=== PATIENT | male | born 1975 | race Caucasian/White ===

== ENCOUNTER 2017-06-16 16:43 | Emergency (ER) | payer OTHER ==
[2017-06-16 16:51] VITALS: BP 158/93
[2017-06-16] MEDS ORDERED: Sulfamethoxazole/Trimethoprim 800-160 MG Tab PO ONE (17:18)
--- NOTE | 2017-06-16 17:44 | EDM.PDOC ---
Scribed by Jessica Schmidt 06/16/17 1722 for Hamida Estrada NP ED HPI GENERAL MEDICAL PROBLEM - General Chief Complaint: Skin Complaint Stated Complaint: SORE ON BACK OF NECK AND STIFF NECK, [id number] Time Seen by Provider: 06/16/17 16:58 Source of Information: Reports: Patient, RN, RN Notes Reviewed History Limitations: Reports: No Limitations - History of Present Illness INITIAL COMMENTS - FREE TEXT/NARRATIVE: Patient presents to ER with complaint of a sore on the back of head which he noticed a few days ago. No drainage. He felt lump growing each day. He is very concerned about if being melanoma or too near the spinal cord. Location: Reports: Head Quality: Reports: Ache Severity: Mild Improves with: Reports: None Worsens with: Reports: None Associated Symptoms: Reports: No Other Symptoms Right Neck Pain Score (Numeric/FACES): 1 - Related Data Allergies Allergy/AdvReac Type Severity Reaction Status Date / Time No Known Allergies Allergy Verified 06/16/17 16:54 Home Meds: Home Meds Albuterol [Proventil HFA] 1 puff INH Q6H PRN 01/19/16 [History] Loratadine [Claritin] 10 mg PO DAILY 01/19/16 [History] Past Medical History HEENT History: Reports: Impaired Vision Respiratory History: Reports: Asthma Musculoskeletal History: Reports: Fracture - Infectious Disease History Infectious Disease History: Reports: Chicken Pox Social & Family History - Family History Family Medical History: Noncontributory - Tobacco Use Smoking Status *Q: Never Smoker - Caffeine Use Caffeine Use: Reports: Coffee - Recreational Drug Use Recreational Drug Use: No ED ROS GENERAL - Review of Systems Review Of Systems: ROS reveals no pertinent complaints other than HPI. ED EXAM, SKIN/RASH Exam: See Below Exam Limited By: No Limitations General Appearance: Alert, WD/WN, No Apparent Distress Eye Exam: Bilateral Eye: Normal Inspection Ears: Normal External Exam, Normal Canal, Hearing Grossly Normal, Normal TMs Nose: Normal Inspection, Normal Mucosa, No Blood Throat/Mouth: Normal Inspection, Normal Lips, Normal Teeth, Normal Gums, Normal Oropharynx, Normal Voice, No Airway Compromise Head: Atraumatic, Normocephalic Neck: Normal Inspection, Supple, Non-Tender, Full Range of Motion Respiratory/Chest: No Respiratory Distress, Lungs Clear, Normal Breath Sounds, No Accessory Muscle Use, Chest Non-Tender Cardiovascular: Normal Peripheral Pulses, Regular Rate, Rhythm, No Edema, No Gallop, No JVD, No Murmur, No Rub GI/Abdominal: Normal Bowel Sounds, Soft, Non-Tender, No Organomegaly, No Distention, No Abnormal Bruit, No Mass (Male) Exam: Deferred Rectal (Males) Exam: Deferred Back Exam: Normal Inspection Extremities: Normal Inspection, Normal Range of Motion, Non-Tender, No Pedal Edema, Normal Capillary Refill Neurological: Alert, Oriented, CN II-XII Intact, Normal Cognition, Normal Gait, Normal Reflexes, No Motor/Sensory Deficits Psychiatric: Normal Affect, Normal Mood Skin: Other (5mm wound. Dry green yellow on crusted drainage.) Lymphatic: No Adenopathy Course - Vital Signs Last Recorded V/S: Last Vital Signs Temp 97.1 F 06/16/17 16:50 Pulse 93 06/16/17 16:50 Resp 16 06/16/17 16:50 BP 158/93 H 06/16/17 16:50 Pulse Ox 98 06/16/17 16:50 - Orders/Labs/Meds Meds: Medications Discontinued Medications Generic Name Dose Route Start Last Admin Trade Name Freq PRN Reason Stop Dose Admin Trimethoprim/Sulfamethoxazole 1 tab 06/16/17 17:18 06/16/17 17:21 Septra Ds PO 06/16/17 17:19 1 tab ONETIME ONE Administration Departure - Departure Time of Disposition: 17:19 Disposition: Home, Self-Care 01 Condition: Good Clinical Impression: Abscess - Discharge Information Instructions: Abscess, [id number] Forms: ED Department Discharge Additional Instructions: Follow up with your primary care facility next week RX: Bactrim Keep area clean and dry I have read and agree with the documentation that has been completed regarding this visit. By signing this record, I attest that the documentation was completed in my physical presence and is an accurate record of the encounter.
== END 2017-06-16 17:25 | disposition home or self-care (01) ==
LOC: DL.ED 16:43
DX: L02.11 Cutaneous abscess of neck (principal); Z79.899 Other long term (current) drug therapy
CPT/HCPCS: 87070; 99283; A9270; 87077; 87186

== ENCOUNTER 2017-06-18 22:34 | Emergency (ER) | payer OTHER ==
[2017-06-18] MEDS ORDERED: Iopamidol 612 MG/ML 75 ML Bottle IVPUSH ONE (22:55)
[2017-06-18 23:16] VITALS: BP 135/72
[2017-06-18 23:24] LABS: ANION GAP 12.8; CHLORIDE,CL 100 mmol/L (101-111); SODIUM,NA 136 mmol/L (135-145)
--- NOTE | 2017-06-19 00:32 | EDM.PDOC ---
ED HPI GENERAL MEDICAL PROBLEM - General Chief Complaint: Skin Complaint Stated Complaint: PAIN IN NECK? [id number] Time Seen by Provider: 06/18/17 22:48 Source of Information: Reports: Patient History Limitations: Reports: No Limitations - History of Present Illness INITIAL COMMENTS - FREE TEXT/NARRATIVE: This 41 yo male patient reports to the ED with swelling at the base of his scalp , history of an abscess and tingling of his left leg. The patient was seen in the ED 2 days ago with an abscess to the posterior head and neck. The patient was started on Bactrim, but noticed increased symptoms today. Onset: Today Duration: Constant, Getting Worse Location: Reports: Head, Neck Quality: Reports: Ache, Dull Severity: Moderate Improves with: Reports: None Worsens with: Reports: None Associated Symptoms: Reports: No Other Symptoms - Related Data Allergies Allergy/AdvReac Type Severity Reaction Status Date / Time No Known Allergies Allergy Verified 06/18/17 22:50 Home Meds: Home Meds Albuterol [Proventil HFA] 1 puff INH Q6H PRN 01/19/16 [History] Loratadine [Claritin] 10 mg PO DAILY 01/19/16 [History] Past Medical History HEENT History: Reports: Impaired Vision Respiratory History: Reports: Asthma Musculoskeletal History: Reports: Fracture - Infectious Disease History Infectious Disease History: Reports: Chicken Pox Social & Family History - Family History Family Medical History: Noncontributory - Tobacco Use Smoking Status *Q: Never Smoker - Caffeine Use Caffeine Use: Reports: Coffee - Recreational Drug Use Recreational Drug Use: No ED ROS GENERAL - Review of Systems Review Of Systems: ROS reveals no pertinent complaints other than HPI. ED EXAM, SKIN/RASH Exam: See Below Exam Limited By: No Limitations General Appearance: Alert, WD/WN, Mild Distress Eye Exam: Bilateral Eye: EOMI, Normal Inspection, PERRL Ears: Normal External Exam, Normal Canal, Hearing Grossly Normal, Normal TMs Nose: Normal Inspection, Normal Mucosa, No Blood Throat/Mouth: Normal Inspection, Normal Lips, Normal Teeth, Normal Gums, Normal Oropharynx, Normal Voice, No Airway Compromise Head: Other (posterior scalp localized reaction to abscess) Neck: Other (localized tissue reaction to abscess with no drainage) Cardiovascular: Normal Peripheral Pulses, Regular Rate, Rhythm, No Edema, No Gallop, No JVD, No Murmur, No Rub GI/Abdominal: Normal Bowel Sounds, Soft, Non-Tender, No Organomegaly, No Distention, No Abnormal Bruit, No Mass (Male) Exam: Deferred Rectal (Males) Exam: Deferred Back Exam: Normal Inspection, Full Range of Motion, NT Extremities: Normal Inspection, Normal Range of Motion, Non-Tender, No Pedal Edema, Normal Capillary Refill Neurological: Alert, Oriented, CN II-XII Intact, Normal Cognition, Normal Gait, Normal Reflexes, No Motor/Sensory Deficits Psychiatric: Normal Affect, Normal Mood Skin: Other Location, Skin: Neck Characteristics: Other Associated features: Swelling. No: Warmth, Tenderness, Induration Lymphatic: No Adenopathy Course - Vital Signs Last Recorded V/S: Last Vital Signs Temp 36.2 C 06/18/17 23:15 Pulse 80 06/18/17 23:15 Resp 16 06/18/17 23:15 BP 135/72 06/18/17 23:15 Pulse Ox 99 06/18/17 23:15 - Orders/Labs/Meds Labs: Laboratory Tests 06/18/17 06/18/17 06/18/17 Range/Units 23:00 23:00 23:00 WBC 6.8 (5.0-10.0) 10^3/uL RBC 5.48 (4.6-6.2) 10^6/uL Hgb 16.1 (14.0-18.0) g/dL Hct 46.1 (40.0-54.0) % MCV 84.1 (80-100) fL MCH 29.4 (27.0-34.0) pg MCHC 34.9 (33.0-35.0) g/dL Plt Count 196 (150-450) 10^3/uL Neut % (Auto) 50.5 (42.2-75.2) % Lymph % (Auto) 35.3 (20.5-50.1) % [place] % (Auto) 9.3 H (2-8) % Eos % (Auto) 4.6 H (1.0-3.0) % Baso % (Auto) 0.3 (0.0-1.0) % Sodium 136 (135-145) mmol/L Potassium 3.8 (3.6-5.0) mmol/L Chloride 100 L (101-111) mmol/L Carbon Dioxide 27.0 (21.0-31.0) mmol/L Anion Gap 12.8 BUN 17 (7-18) mg/dL Creatinine 1.3 (0.6-1.3) mg/dL Est Cr Clr Drug Dosing 85.19 mL/min Estimated GFR (MDRD) > 60 BUN/Creatinine Ratio 13.07 Glucose 100 (74-105) mg/dL Lactic Acid 1.1 (0.5-2.2) mmol/L Calcium 9.2 (8.4-10.2) mg/dl Total Bilirubin 0.7 (0.2-1.0) mg/dL AST 29 (10-42) IU/L ALT 55 (10-60) IU/L Alkaline Phosphatase 68 (42-121) IU/L Total Protein 7.6 (6.7-8.2) g/dl Albumin 4.4 (3.2-5.5) g/dl Globulin 3.2 Albumin/Globulin Ratio 1.38 Meds: Medications Discontinued Medications Generic Name Dose Route Start Last Admin Trade Name Freq PRN Reason Stop Dose Admin Iopamidol 75 ml 06/18/17 22:55 Isovue-300 (61%) IVPUSH 06/18/17 22:56 ONETIME ONE Departure - Departure Time of Disposition: 00:32 Disposition: Home, Self-Care 01 Condition: Fair Clinical Impression: Abscess of neck - Discharge Information Instructions: Abscess, [id number] Forms: ED Department Discharge Care Plan Goals: The patient was advised of the examination, lab and CT results during the visit. The patient was encouraged to continue to take the Bactrim as prescribed. If the patient has any additional symptoms or further concerns, the patient should follow-up with his primary care facility or return to the emergency department.
== END 2017-06-19 00:43 | disposition home or self-care (01) ==
LOC: DL.ED 22:34
DX: L02.11 Cutaneous abscess of neck (principal); L02.811 Cutaneous abscess of head [any part, except face]; J45.909 Unspecified asthma, uncomplicated; Z79.899 Other long term (current) drug therapy
CPT/HCPCS: 36415; 70450; 70491; 80053; 83605; 85025; 99283; Q9967

== ENCOUNTER 2019-07-20 13:57 | Emergency (ER) | payer OTHER ==
[2019-07-20] MEDS ORDERED: Albuterol/Ipratropium 3.0-0.5 MG/3 ML Neb Soln NEB ONE (14:05)
[2019-07-20 14:15] VITALS: BP 132/84; PULSE 102
[2019-07-20] MEDS ORDERED: Sodium Chloride 0.9% 10 ML Syringe FLUSH PRN (14:17)
[2019-07-20] MEDS ORDERED: methylPREDNISolone Sodium Succinate 125 MG/2 ML SDV IVPUSH ONE (14:17)
[2019-07-20] MEDS ORDERED: Magnesium Sulfate/Water 100 ML IV ONE (14:18)
--- NOTE | 2019-07-20 14:54 | EDM.PDOC ---
Scribed by Jessica Schmidt 07/20/19 8410 for Sumanth Quach MD ED HPI GENERAL MEDICAL PROBLEM - General Chief Complaint: Respiratory Problem Stated Complaint: RESPIRATORY Time Seen by Provider: 07/20/19 14:07 Source of Information: Reports: Patient, RN, RN Notes Reviewed History Limitations: Reports: No Limitations - History of Present Illness INITIAL COMMENTS - FREE TEXT/NARRATIVE: Patient presents to ER by POV with 3 day history of cough and increasing need for inhaler, up to every two hours now. 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 States this is usually just seasonal. Unsure if he has had temp, but has felt chills. He states his wheezing became so severe last evening that he began using his Albuterol inhaler every 1 to 2 hours and came close to having a panic attack due to shortness of breath. He has a nebulizer at home but no tubing at home. His last asthma flare up was during harvest. He states that grain dust is usually his trigger but he has not been exposed to any grain dust recently and does not know what triggered this current episode. Onset Date: 07/18/19 Duration: Getting Worse Location: Reports: Chest Severity: Moderate Improves with: Reports: None Worsens with: Reports: None Associated Symptoms: Reports: No Other Symptoms - Related Data Allergies Allergy/AdvReac Type Severity Reaction Status Date / Time No Known Allergies Allergy Verified 06/18/17 22:50 Home Meds: Home Meds Albuterol [Proventil HFA] 1 puff INH Q6H PRN 01/19/16 [History] Loratadine [Claritin] 10 mg PO DAILY 01/19/16 [History] Past Medical History HEENT History: Reports: Impaired Vision Respiratory History: Reports: Asthma Musculoskeletal History: Reports: Fracture - Infectious Disease History Infectious Disease History: Reports: Chicken Pox Social & Family History - Family History Family Medical History: Noncontributory - Tobacco Use Smoking Status *Q: Never Smoker - Caffeine Use Caffeine Use: Reports: Coffee ED ROS GENERAL - Review of Systems Review Of Systems: Comprehensive ROS is negative, except as noted in HPI. ED EXAM, GENERAL - Physical Exam Exam: See Below Exam Limited By: No Limitations General Appearance: Alert, WD/WN, No Apparent Distress, Anxious Eye Exam: Bilateral Eye: Normal Inspection Nose: Normal Inspection, Normal Mucosa, No Blood Throat/Mouth: Normal Inspection, Normal Lips, Normal Teeth, Normal Gums, Normal Oropharynx, Normal Voice, No Airway Compromise Head: Atraumatic, Normocephalic Neck: Normal Inspection, Supple, Non-Tender, Full Range of Motion Respiratory/Chest: No Respiratory Distress, No Accessory Muscle Use, Decreased Breath Sounds, Crackles, Wheezing (Tight wheezes throughout). No: Rales, Rhonchi, Stridor Cardiovascular: Regular Rate, Rhythm, No Edema, Tachycardia Extremities: Normal Inspection, Normal Range of Motion, Non-Tender, Normal Capillary Refill, No Pedal Edema Neurological: Alert, Oriented, CN II-XII Intact, Normal Cognition, No Motor/ Sensory Deficits Psychiatric: Anxious Skin Exam: Warm, Dry, Intact, Normal Color, No Rash Course - Vital Signs Last Recorded V/S: Last Vital Signs Temp 97.8 F 07/20/19 14:00 Pulse 107 H 07/20/19 14:12 Resp 24 H 07/20/19 14:00 BP 132/84 07/20/19 14:00 Pulse Ox 95 07/20/19 14:00 - Orders/Labs/Meds Orders: Active Orders 24 hr Category Date Time Status Peripheral IV Care [RC] . DIRECTED Care 07/20/19 14:18 Active RT Aerosol Therapy [RC] ASDIRECTED Care 07/20/19 14:05 Active Chest 2V [CR] Stat Exams 07/20/19 14:17 Taken Sodium Chloride 0.9% [Saline Flush] Med 07/20/19 14:17 Active 10 ml FLUSH ASDIRECTED PRN Peripheral IV Insertion Adult [OM.PC] Stat Oth 07/20/19 14:17 Ordered Medication Orders Sodium Chloride (Saline Flush) 10 ml FLUSH ASDIRECTED PRN PRN Reason: Keep Vein Open Last Admin: 07/20/19 14:29 Dose: 10 ml Labs: Laboratory Tests 07/20/19 Range/Units 14:25 WBC 5.0 (5.0-10.0) 10^3/uL RBC 5.59 (4.6-6.2) 10^6/uL Hgb 16.9 (14.0-18.0) g/dL Hct 46.5 (40.0-54.0) % MCV 83.2 (80-100) fL MCH 30.2 (27.0-34.0) pg MCHC 36.3 H (33.0-35.0) g/dL Plt Count 179 (150-450) 10^3/uL Neut % (Auto) 39.8 L (42.2-75.2) % Lymph % (Auto) 36.3 (20.5-50.1) % [place] % (Auto) 14.1 H (2-8) % Eos % (Auto) 9.2 H (1.0-3.0) % Baso % (Auto) 0.6 (0.0-1.0) % Meds: Medications Generic Name Dose Route Start Last Admin Trade Name Freq PRN Reason Stop Dose Admin Sodium Chloride 10 ml 07/20/19 14:17 07/20/19 14:29 Saline Flush FLUSH 10 ml ASDIRECTED PRN Administration Keep Vein Open Discontinued Medications Generic Name Dose Route Start Last Admin Trade Name Freq PRN Reason Stop Dose Admin Albuterol/Ipratropium 3 ml 07/20/19 14:05 07/20/19 14:14 Duoneb 3.0-0.5 Mg/3 Ml NEB 07/20/19 14:06 3 ml ONETIME ONE Administration Magnesium Sulfate 100 mls @ 200 mls/hr 07/20/19 14:18 07/20/19 14:45 Magnesium Sulfate In Water Premix IV 07/20/19 14:47 200 mls/hr ONETIME ONE Administration Methylprednisolone Sodium Succinate 125 mg 07/20/19 14:17 07/20/19 14:27 Solu-Medrol IVPUSH 07/20/19 14:18 125 mg ONETIME ONE Administration - Radiology Interpretation Free Text/Narrative:: XR Chest: no focal infiltrates, no acute process, see Rad. report. Departure - Departure Time of Disposition: 15:35 Disposition: Home, Self-Care 01 Condition: Fair Clinical Impression: Exacerbation of asthma Qualifiers: Asthma severity: unspecified severity Asthma persistence: intermittent Qualified Code(s): J45.21 - Mild intermittent asthma with (acute) exacerbation - Discharge Information *PRESCRIPTION DRUG MONITORING PROGRAM REVIEWED*: Not Applicable *COPY OF PRESCRIPTION DRUG MONITORING REPORT IN PATIENT JAIR: Not Applicable Instructions: Asthma Attack Forms: ED Department Discharge Additional Instructions: Rx: Prednisone 20mg (Begin tomorrow: 3 tablets with a meal once a day for 5 days ). Rx: Albuterol Nebulizer Solution 2.5mg/3ml Use your Loratadine 10mg One tablet twice a day for five days, then one a day thereafter. Follow up in clinic with your primary doctor this week for recheck. Return to ER if worse at any time. Sepsis Event Note - Focused Exam Vital Signs: Vital Signs Temp Pulse Resp BP Pulse Ox 07/20/19 14:12 107 H 07/20/19 14:00 97.8 F 102 H 24 H 132/84 95 Date Exam was Performed: 07/20/19 Time Exam was Performed: 14:50 - My Orders Last 24 Hours: My Active Orders 07/20/19 14:05 RT Aerosol Therapy [RC] ASDIRECTED 07/20/19 14:17 Chest 2V [CR] Stat Sodium Chloride 0.9% [Saline Flush] 10 ml FLUSH ASDIRECTED PRN Peripheral IV Insertion Adult [OM.PC] Stat 07/20/19 14:18 Peripheral IV Care [RC] . DIRECTED - Assessment/Plan Last 24 Hours: My Active Orders 07/20/19 14:05 RT Aerosol Therapy [RC] ASDIRECTED 07/20/19 14:17 Chest 2V [CR] Stat Sodium Chloride 0.9% [Saline Flush] 10 ml FLUSH ASDIRECTED PRN Peripheral IV Insertion Adult [OM.PC] Stat 07/20/19 14:18 Peripheral IV Care [RC] . DIRECTED I have read and agree with the documentation that has been completed regarding this visit. By signing this record, I attest that the documentation was completed in my physical presence and is an accurate record of the encounter.
== END 2019-07-20 15:31 | disposition home or self-care (01) ==
LOC: DL.ED 13:57
DX: J45.21 Mild intermittent asthma with (acute) exacerbation (principal)
CPT/HCPCS: 36415; 71046; 85025; 94640; 96365; 96375; 99284; J2930; J3475; J7620-GY

== ENCOUNTER 2020-05-05 20:45 | Emergency (ER) | payer OTHER ==
[2020-05-05 20:54] VITALS: BP 154/102; PULSE 92
[2020-05-05 21:25] LABS: ANION GAP 12.6 mEq/L (7-13); CHLORIDE,CL 102 mmol/L (98-107); SODIUM,NA 140 mmol/L (136-145)
--- NOTE | 2020-05-05 22:03 | EDM.PDOC ---
ED HPI GENERAL MEDICAL PROBLEM - General Chief Complaint: Cardiovascular Problem Stated Complaint: HEART SKIPPING BEATS Time Seen by Provider: 05/05/20 20:50 Source of Information: Reports: Patient, RN History Limitations: Reports: No Limitations - History of Present Illness INITIAL COMMENTS - FREE TEXT/NARRATIVE: PVC's tonight, every 3rd, has had in past usually after caffeine or big meal had soda today and large meal tonight, started after supper, no chest pain, no sweating nausea or arm pain, did feel dizzy briefly but better now. Not as noticeable as at onset. Tried beta blockers and diltiazem in past without improvement and didn't like side effects. Has been seen at [facility] previously for same. - Related Data Allergies Allergy/AdvReac Type Severity Reaction Status Date / Time No Known Allergies Allergy Verified 05/05/20 20:53 Home Meds: Home Meds Albuterol [Proventil HFA] 1 puff INH Q6H PRN 01/19/16 [History] Past Medical History HEENT History: Reports: Impaired Vision Cardiovascular History: Reports: Other (See Below) Other Cardiovascular History: PVCs Respiratory History: Reports: Asthma Musculoskeletal History: Reports: Fracture - Infectious Disease History Infectious Disease History: Reports: Chicken Pox Social & Family History - Family History Family Medical History: No Pertinent Family History - Tobacco Use Tobacco Use Status *Q: Never Tobacco User Second Hand Smoke Exposure: No - Caffeine Use Caffeine Use: Reports: Coffee - Recreational Drug Use Recreational Drug Use: No ED ROS GENERAL - Review of Systems Review Of Systems: Comprehensive ROS is negative, except as noted in HPI. ED EXAM, GENERAL - Physical Exam Exam: See Below Exam Limited By: No Limitations General Appearance: Alert, No Apparent Distress, Anxious (mild) Eye Exam: Bilateral Eye: EOMI Ears: Normal External Exam Nose: Normal Inspection Throat/Mouth: Normal Inspection Head: Atraumatic, Normocephalic Neck: Normal Inspection Respiratory/Chest: No Respiratory Distress, Lungs Clear, Normal Breath Sounds Cardiovascular: Normal Peripheral Pulses, Other (underlying sinus, with intermittent Trigeminal PVC's) GI/Abdominal: Normal Bowel Sounds, Soft Extremities: Normal Inspection Neurological: Alert, Oriented, Normal Cognition Psychiatric: Anxious (mild) Skin Exam: Warm, Dry, Intact, Normal Color Course - Vital Signs Last Recorded V/S: Last Vital Signs Temp 97.8 F 05/05/20 20:49 Pulse 92 05/05/20 20:49 Resp 18 05/05/20 20:49 BP 154/102 H 05/05/20 20:49 Pulse Ox 97 05/05/20 20:49 - Orders/Labs/Meds Labs: Laboratory Tests 05/05/20 05/05/20 05/05/20 Range/Units 20:58 20:58 20:58 WBC 6.8 (5.0-10.0) 10^3/uL RBC 5.55 (4.6-6.2) 10^6/uL Hgb 16.9 (14.0-18.0) g/dL Hct 47.1 (40.0-54.0) % MCV 84.9 (80-100) fL MCH 30.5 (27.0-34.0) pg MCHC 35.9 H (33.0-35.0) g/dL Plt Count 199 (150-450) 10^3/uL Neut % (Auto) 45.1 (42.2-75.2) % Lymph % (Auto) 38.8 (20.5-50.1) % [place] % (Auto) 7.4 (2-8) % Eos % (Auto) 8.4 H (1.0-3.0) % Baso % (Auto) 0.3 (0.0-1.0) % PT 10.4 (9.0-12.0) SEC INR 1.1 (0.9-1.2) D-Dimer, Quantitative < 100 (0-400) ng/mL Sodium 140 (136-145) mmol/L Potassium 3.6 (3.5-5.1) mmol/L Chloride 102 (98-107) mmol/L Carbon Dioxide 29 (21-32) mmol/L Anion Gap 12.6 (7-13) mEq/L BUN 13 (7-18) mg/dL Creatinine 1.17 (0.70-1.30) mg/dL Est Cr Clr Drug Dosing 91.72 mL/min Estimated GFR (MDRD) > 60 BUN/Creatinine Ratio 11.1 (No establ ref range) Glucose 87 (74-99) mg/dL Calcium 9.0 (8.5-10.1) mg/dL Magnesium 2.0 (1.8-2.4) mg/dL Total Bilirubin 0.5 (0.2-1.0) mg/dL AST 19 (15-37) U/L ALT 56 (16-63) U/L Alkaline Phosphatase 78 (46-116) U/L Troponin I < 0.017 (0.000-0.056) ng/mL Total Protein 7.2 (6.4-8.2) g/dL Albumin 3.8 (3.4-5.0) g/dL Globulin 3.4 Albumin/Globulin Ratio 1.1 Departure - Departure Time of Disposition: 22:00 Disposition: Home, Self-Care 01 Condition: Good Clinical Impression: Palpitations, PVCs (premature ventricular contractions) Instructions: Palpitations Referrals: Joi Moore MD [Primary Care Provider] - Forms: ED Department Discharge Additional Instructions: Aspirin 81mg [facility] follow up this week Urgent follow up if palpitations, skipped beats associated with chest pain sweating nausea or weakness. avoid caffeine Sepsis Event Note (ED) - Evaluation Sepsis Screening Result: No Definite Risk - Focused Exam Vital Signs: Vital Signs Temp Pulse Resp BP Pulse Ox 05/05/20 20:49 97.8 F 92 18 154/102 H 97
== END 2020-05-05 22:15 | disposition home or self-care (01) ==
LOC: DL.ED 20:45
DX: I49.3 Ventricular premature depolarization (principal); J45.909 Unspecified asthma, uncomplicated
CPT/HCPCS: 36415; 80053; 83735; 84484; 85025; 85379; 85610; 93005; 99285-25

== ENCOUNTER 2020-07-23 23:02 | Emergency (ER) | payer BC, OTHER ==
--- NOTE | 2020-07-23 23:13 | EDM.PDOC ---
ED HPI GENERAL MEDICAL PROBLEM - General Chief Complaint: Cardiovascular Problem Stated Complaint: FAST HEARTBEAT, PALPITATIONS Time Seen by Provider: 07/23/20 23:07 Source of Information: Reports: Patient History Limitations: Reports: No Limitations - History of Present Illness INITIAL COMMENTS - FREE TEXT/NARRATIVE: ED with c/o waking with feeling heart racing and palpitations. Notes 5 days of fasting, drinking only water up to gallon per day. Took health supplement of selenium, potassium and mag yesterday. Labs check prior to fast and were normal. Denied chest pain. - Related Data Allergies Allergy/AdvReac Type Severity Reaction Status Date / Time No Known Allergies Allergy Verified 07/23/20 23:17 Home Meds: Home Meds Albuterol [Proventil HFA] 1 puff INH Q6H PRN 01/19/16 [History] Selenium 50 mcg PO DAILY 07/23/20 [History] Past Medical History HEENT History: Reports: Impaired Vision Cardiovascular History: Reports: Other (See Below) Other Cardiovascular History: PVCs Respiratory History: Reports: Asthma Musculoskeletal History: Reports: Fracture - Infectious Disease History Infectious Disease History: Reports: Chicken Pox Social & Family History - Family History Family Medical History: No Pertinent Family History - Caffeine Use Caffeine Use: Reports: Coffee ED ROS GENERAL - Review of Systems Review Of Systems: Comprehensive ROS is negative, except as noted in HPI. ED EXAM, GENERAL - Physical Exam Exam: See Below Exam Limited By: No Limitations General Appearance: Alert, Anxious, Mild Distress Eye Exam: Bilateral Eye: EOMI Ears: Normal External Exam Head: Atraumatic, Normocephalic Neck: Normal Inspection, Full Range of Motion Cardiovascular: Normal Peripheral Pulses, Regular Rate, Rhythm, Extra Beats (rare PAC on monitor) GI/Abdominal: Normal Bowel Sounds, Soft Back Exam: Full Range of Motion Neurological: Alert, Oriented, Normal Cognition Psychiatric: Anxious Skin Exam: Warm, Dry, Intact, Normal Color Course - Vital Signs Last Recorded V/S: Last Vital Signs Temp 97.2 F 07/23/20 23:07 Pulse 99 07/23/20 23:07 Resp 19 07/23/20 23:07 BP 135/110 H 07/23/20 23:07 Pulse Ox 98 07/23/20 23:07 - Orders/Labs/Meds Labs: Laboratory Tests 07/23/20 07/23/20 07/23/20 Range/Units 23:20 23:20 23:30 WBC 6.3 (5.0-10.0) 10^3/uL RBC 5.84 (4.6-6.2) 10^6/uL Hgb 17.7 (14.0-18.0) g/dL Hct 47.4 (40.0-54.0) % MCV 81.2 D (80-100) fL MCH 30.3 (27.0-34.0) pg MCHC 37.3 H (33.0-35.0) g/dL Plt Count 217 (150-450) 10^3/uL Neut % (Auto) 59.7 (42.2-75.2) % Lymph % (Auto) 28.9 (20.5-50.1) % [place] % (Auto) 8.4 H (2-8) % Eos % (Auto) 2.4 (1.0-3.0) % Baso % (Auto) 0.6 (0.0-1.0) % Sodium 134 L (136-145) mmol/L Potassium 3.3 L (3.5-5.1) mmol/L Chloride 97 L (98-107) mmol/L Carbon Dioxide 22 (21-32) mmol/L Anion Gap 18.3 H (7-13) mEq/L BUN 10 (7-18) mg/dL Creatinine 1.17 (0.70-1.30) mg/dL Est Cr Clr Drug Dosing 89.16 mL/min Estimated GFR (MDRD) > 60 BUN/Creatinine Ratio 8.5 (No establ ref range) Glucose 89 (74-99) mg/dL POC Glucose 87 (70-105) mg/dl Calcium 9.4 (8.5-10.1) mg/dL Magnesium 2.0 (1.8-2.4) mg/dL Total Bilirubin 1.4 H (0.2-1.0) mg/dL AST 46 H (15-37) U/L ALT 86 H (16-63) U/L Alkaline Phosphatase 81 (46-116) U/L Troponin I < 0.017 (0.000-0.056) ng/mL Total Protein 8.2 (6.4-8.2) g/dL Albumin 4.8 (3.4-5.0) g/dL Globulin 3.4 Albumin/Globulin Ratio 1.4 Meds: Medications Discontinued Medications Generic Name Dose Route Start Last Admin Trade Name Cesar PRN Reason Stop Dose Admin Potassium Chloride 20 meq 07/23/20 23:57 07/24/20 00:07 Klor-Con 10 PO 07/23/20 23:58 20 meq ONETIME ONE Administration Departure - Departure Time of Disposition: 00:06 Disposition: Home, Self-Care 01 Condition: Good Clinical Impression: Palpitations, Hypokalemia Instructions: Palpitations, [id number] Forms: ED Department Discharge Additional Instructions: light diet advance as tolerated clinic recheck on sunday Sepsis Event Note (ED) - Focused Exam Vital Signs: Vital Signs Temp Pulse Resp BP Pulse Ox 07/23/20 23:07 97.2 F 99 19 135/110 H 98
[2020-07-23 23:14] VITALS: BP 135/110; PULSE 99
[2020-07-23 23:48] LABS: ANION GAP 18.3 mEq/L (7-13); CHLORIDE,CL 97 mmol/L (98-107); SODIUM,NA 134 mmol/L (136-145)
[2020-07-23] MEDS ORDERED: Potassium Chloride 10 MEQ Tab.ER PO ONE (23:57)
== END 2020-07-24 00:19 | disposition home or self-care (01) ==
LOC: DL.ED 23:02
DX: E87.6 Hypokalemia (principal); J45.909 Unspecified asthma, uncomplicated
CPT/HCPCS: 36415; 80053; 82962; 83735; 84484; 85025; 93005; 99285; A9270; 99283

== ENCOUNTER 2020-09-09 05:58 | Day surgery (SDC) | payer BC ==
[~2020-09-09 05:58] MED LIST: Dextrose 5%-0.45% NaCl 1,000 ML IV SCH; Sodium Chloride 0.9% 10 ML Syringe FLUSH PRN
[2020-09-09] MEDS ORDERED: fentaNYL 100 MCG/2 ML SDV IV ONE ×3 (05:59→07:05)
[2020-09-09] MEDS ORDERED: Midazolam 1 MG/ML 2 ML SDV IV ONE ×3 (05:59→07:06)
[2020-09-09] MEDS ORDERED: fentaNYL 100 MCG/2 ML SDV ONE (06:08)
[2020-09-09] MEDS ORDERED: Midazolam 1 MG/ML 2 ML SDV ONE (06:08)
[2020-09-09 10:48] VITALS: BP 117/83; PULSE 72
--- NOTE | 2020-09-09 13:28 | OR ---
DATE: 09/09/2020 PROCEDURE DONE: Esophageal dilatation. INSTURMENT USED: Ayoub bougie esophageal dilator, Kinyarwanda size 48. INDICATION: Constricting Schatzki's ring. PREMEDICATION: Done after EGD. PROCEDURE IN DETAIL: Esophageal dilatation was done using dilator, Kinyarwanda size 48. Some bloody material noted at the dilator tip after completion. IMPRESSION: Constricting Schatzki's ring. The patient tolerated the procedure well. [facility] /[id number]
--- NOTE | 2020-09-09 14:01 | OR ---
DATE: 09/09/2020 PROCEDURE: Esophagogastroduodenoscopy, NBI, and multiple pinch biopsies. INSTRUMENT USED: [id number]-HQ190 Olympus video panendoscope. PREMEDICATIONS: No oral or topical anesthesia used. Fentanyl 100 mcg intravenous, Versed 2 mg intravenous. The procedure was done under pulse oximetry, BP recording, and forming mill operator. INDICATION: The patient with persistent dysphagia, unexplained and not responsive to medical measures. Esophagogastroduodenoscopy is performed for detection of any active erosive lesions, [place]ney esophagus and/or malignancy also under consideration, biopsies to be obtained for esophageal eosinophilia if indicated, H. pylori status to be determined, endoscopic hemostasis therapy if needed. PROCEDURE IN DETAIL: The scope was passed with ease. Adequate visualization of the esophagus was made from proximal to distal areas. No upper esophageal lesions identified. Constricting Schatzki's ring was noted. No uphill or downhill esophageal varices. No Nicci-Guevara tear. Grade A erosive changes were noted by Gasquet criteria. No esophageal polyp or tumor mass identified. Sliding hiatal hernia was noted. No proximal gastric varices noted. Gastric fundus examination by retroflexion showed no polypoid lesions. No gastric ulcer, malignant mass, or vascular ectasia identified. Duodenal bulb showed no ulcer. Visualized second part of duodenum was unremarkable. Multiple pinch biopsies were obtained from the gastric antrum and proximal body and sent for PyloriTek test for H. pylori and histopathology. Four-quadrant biopsies were also taken from the distal and proximal esophagus and sent for any histopathologic evidence of esophageal eosinophilia. No bleeding was noted from any of the visualized areas at the completion of examination. Photographs were taken of the duodenal bulb, gastric antrum, fundus, and distal esophagus. IMPRESSION: 1. Grade A gastroesophageal reflux disease. 2. Sliding hiatal hernia. 3. Constricting Schatzki's ring. The patient tolerated the procedure well. [facility] /[id number]
== END 2020-09-09 09:22 | disposition home or self-care (01) ==
LOC: DL.ENDO 05:58
PROVIDERS: ATTEND Internal Medicine Gastroenterology
DX: K21.00 Gastro-esophageal reflux disease with esophagitis, without bleeding (principal); K29.50 Unspecified chronic gastritis without bleeding; K44.9 Diaphragmatic hernia without obstruction or gangrene; K22.2 Esophageal obstruction; E66.09 Other obesity due to excess calories; E78.00 Pure hypercholesterolemia, unspecified; N28.1 Cyst of kidney, acquired
CPT/HCPCS: 43239; 43450; 87077; J2250; J3010; J7042

== ENCOUNTER 2020-11-23 20:15 | Emergency (ER) | payer BC ==
[2020-11-23 20:41] VITALS: BP 114/76; PULSE 74
== END 2020-11-23 22:32 | disposition left against medical advice (07) ==
LOC: DL.ED 20:15
DX: Z53.21 Procedure and treatment not carried out due to patient leaving prior to being seen by health care provider (principal)

== ENCOUNTER 2021-07-03 11:32 | Emergency (ER) | payer BC ==
[2021-07-03 13:01] LABS: CORONAVIRUS COVID-19 NAA POSITIVE (NEGATIVE)
[2021-07-03 14:12] VITALS: BP 157/124; PULSE 80
[2021-07-03 15:23] LABS: ANION GAP 15.5 mEq/L (7-13); CHLORIDE,CL 101 mmol/L (98-107); SODIUM,NA 141 mmol/L (136-145)
[2021-07-03 15:36] LABS: PTT,PARTIAL THROMBOPLSTIN TIME 23.9 SEC (22.0-34.0)
== END 2021-07-03 16:30 | disposition home or self-care (01) ==
LOC: DL.ED 11:32
DX: U07.1 COVID-19 (principal); J45.909 Unspecified asthma, uncomplicated; I49.3 Ventricular premature depolarization; E66.9 Obesity, unspecified; Z68.33 Body mass index [BMI] 33.0-33.9, adult
CPT/HCPCS: 0240U; 36415; 80053; 81001; 83735; 84484; 85025; 85379; 85610; 85730; 86140; 99284